=== PATIENT | female | born 1935 | race Caucasian/White ===

== ENCOUNTER → 2019-01-05 | Outpatient (CLI) | payer MEDICARE | LOC: MAMMO 13:13 | PROVIDERS: ATTEND Family Medicine | DX: Z12.31 Encounter for screening mammogram for malignant neoplasm of breast (principal) | CPT/HCPCS: 77067 ==

== ENCOUNTER → 2020-09-08 | Outpatient (CLI) | payer MEDICARE | LOC: MAMMO 13:13 | PROVIDERS: ATTEND Family Medicine | DX: Z12.31 Encounter for screening mammogram for malignant neoplasm of breast (principal) | CPT/HCPCS: 77067 ==

== ENCOUNTER → 2020-09-22 | Outpatient (CLI) | payer MEDICARE ==
--- NOTE | 2020-09-23 08:16 | Diagnostic Imaging Report ---
#[id number] - USBRECOMRT ULTRASOUND OF THE RIGHT BREAST : 09/22/2020 Comparison is made to exam dated: 09/08/2020 mammogram - [facility]. Real-time ultrasound was performed on the right breast. IMPRESSION: NEGATIVE There is no sonographic evidence of malignancy. JAMAL GARCIA M.D., mp/penrad:09/22/2020 16:40:17 Coffee Roaster: Shania Singh RDMS, [facility] Ultrasound BI-RADS: 1 Negative
--- NOTE | 2020-09-23 08:16 | Diagnostic Imaging Report ---
#[id number] - USBRECOMLT ULTRASOUND OF THE LEFT BREAST : 09/22/2020 Comparison is made to exam dated: 09/08/2020 mammogram - [facility]. Color flow and real-time ultrasound were performed on the left breast. Prominent blood vessels are noted in the retroareolar region of the left breast. IMPRESSION: NEGATIVE There is no sonographic evidence of malignancy. A 1 year screening mammogram is recommended. JAMAL GARCIA M.D. mp/:09/22/2020 16:41:24 Relay Tester Helper: Shania Singh [facility], [facility] letter sent: Normal Exam Ultrasound BI-RADS: 1 Negative
== END ==
LOC: US 09:49
PROVIDERS: ATTEND Family Medicine
DX: R92.2 Inconclusive mammogram (principal)

== ENCOUNTER → 2022-01-25 | Outpatient (CLI) | payer MEDICARE | LOC: MAMMO 10:33 | PROVIDERS: ATTEND Family Medicine | DX: R92.2 Inconclusive mammogram (principal); Z85.3 Personal history of malignant neoplasm of breast | CPT/HCPCS: 77066 ==